=== PATIENT | male | born 1940 | race Caucasian/White ===

== ENCOUNTER → 2020-07-16 | Day surgery (SDC) | payer MEDICARE | LOC: EDBD → MSO 10:59 | DX: H25.12 Age-related nuclear cataract, left eye (principal); E78.00 Pure hypercholesterolemia, unspecified; I10 Essential (primary) hypertension; Z79.01 Long term (current) use of anticoagulants | CPT/HCPCS: 00142; J0171; J0360; J2250; V2632 ==

== ENCOUNTER → 2020-08-20 | Day surgery (SDC) | payer MEDICARE | LOC: MSO 08:58 | DX: H25.11 Age-related nuclear cataract, right eye (principal); E78.00 Pure hypercholesterolemia, unspecified; I10 Essential (primary) hypertension; Z79.01 Long term (current) use of anticoagulants; Z79.899 Other long term (current) drug therapy; Z95.0 Presence of cardiac pacemaker | CPT/HCPCS: 00142; J0171; J2250; V2632 ==